=== PATIENT | male | born 1965 | race Caucasian/White ===

== ENCOUNTER 2017-11-11 08:01 | Outpatient (CLI) | payer BC ==
--- NOTE | 2017-11-11 11:09 | MRI ---
MR OF THE RIGHT HAND WITHOUT CONTRAST: Indication: Right ring finger metacarpal phalangeal ulnar collateral ligament injury with PIP joint p ain. Technique: Multiplanar, multisequence MRI images were obtained of the right hand without IV contrast. A surface marker was placed within the region of the pain at the PIP joint of the right long finger. Comparison: None. FINDINGS: The visualized carpal tunnels contents appear within normal limits. A small amount of fluid is seen within the flexor tendon sheath of the right long finger at the level of the metacarpal phalangeal head. The flexor tendons appear intact. There is hazy increased T2 and diminished T1 signal intensity seen involving the ulnar sagittal band of the right long finger at the level of the right long finger metacarpal phalangeal head on image 15 of series 5 and image 15 of series 6 suspicious for partial sagittal band tear. There is some very s ubtle radial subluxation of the extensor tendon at the level of the metacarpal phalangeal head. The c entral slip, however, does appear to remain intact and inserts at the base of the middle phalanx. The radial collateral and ulnar collateral ligaments of the MCP and PIP joints appear intact. The volar plates appear intact. There is some degenerative subchondral cyst like abnormality involving the radial aspect of the long finger metacarpal head. Incidental note is made of a small 8 mm ganglion adjacent to the ulnar aspect of the thumb MCP joint. No acute fracture is evident. IMPRESSION: 1. Findings suspicious for a partial thickness tear of the ulnar sagittal band of the long finger ext ensor tendon at the level of the metacarpal phalangeal head with very subtle subluxation of the exten sor tendon. The central band appears intact. The collateral ligaments of the right lung finger appear intact. 2. Degenerative subchondral cyst like abnormalities seen involving the radial aspect of the long fing er metacarpal phalangeal head. 3. Mild focal tenosynovitis of the flexor tendon at the level of the MCP head. The flexor tendons are intact. POS: [facility]
== END 2017-11-11 08:02 | disposition home or self-care (01) ==
LOC: MRI 08:01
PROVIDERS: ATTEND Orthopaedic Surgery Hand Surgery
DX: S63.654A Sprain of metacarpophalangeal joint of right ring finger, initial encounter (principal); M65.9 Synovitis and tenosynovitis, unspecified

== ENCOUNTER 2017-11-17 10:13 | Outpatient (CLI) | payer BC ==
[2017-11-17 11:47] LABS: #Eosinphils 0.1 thou/uL (0.0-0.7); #Lymphocytes 1.8 thou/uL (1.20-3.40); #Monocytes 0.5 thou/uL (0.11-0.59); #Neutrophils 2.6 thou/uL (1.40-6.50); %Basophils 0.6 % (0.0-1.0); %Eosinophils 2.7 % (0.0-10.0); %Lymphocytes 34.8 % (21.0-51.0); %Monocytes 10.6 % (0.0-10.0); Hematocrit 47.3 % (42.0-52.0); Mean Platelet Volume 8.6 fL (7.4-10.4); Red Blood Cell (RBC) Count 5.11 mill/uL (4.70-6.10); White Blood Cell (WBC) Count 5.1 thou/uL (4.8-10.8)
== END 2017-11-17 10:14 | disposition home or self-care (01) ==
LOC: LABBT 10:13
PROVIDERS: ATTEND Orthopaedic Surgery Hand Surgery
DX: Z01.812 Encounter for preprocedural laboratory examination (principal); S69.91XA Unspecified injury of right wrist, hand and finger(s), initial encounter; M65.9 Synovitis and tenosynovitis, unspecified
CPT/HCPCS: 85025; 93005; 93010

== ENCOUNTER 2017-11-28 05:55 | Day surgery (SDC) | payer BC ==
[2017-11-17 10:34] VITALS: BMI 27.8
[2017-11-28] MEDS ORDERED: Midazolam HCl 2 mg/2 ml Vial ONE (06:44)
[2017-11-28] MEDS ORDERED: Fentanyl 100 MCG/2 ML VIAL ONE (06:44)
[2017-11-28] MEDS ORDERED: Bacitracin Zinc Ointment 30 gm TUBE ONE (06:50)
[2017-11-28] MEDS ORDERED: Bupivacaine PF 0.5% 30 ML VIAL ONE (06:50)
[2017-11-28] MEDS ORDERED: Betamet Acet/Betamet Na Ph 30 MG/5 ML VIAL ONE (06:50)
[2017-11-28] MEDS ORDERED: Thrombin 5000 UNITS/5 ML VIAL ONE (06:50)
[2017-11-28] MEDS ORDERED: CEFAZOLIN 1 GM, Syringe 2.5 ML in Sterile Water 7.5 ML SLOW IVP SCH (07:15)
[2017-11-28] MEDS ORDERED: Ketorolac Tromethamine 30 MG/ML VIAL ONE ×2 (09:55→17:07)
[2017-11-28] MEDS ORDERED: Ondansetron HCl/PF 4 MG/2 ML Vial ONE (17:07)
[2017-11-28] MEDS ORDERED: diphenhydrAMINE 50 MG/ML VIAL ONE (17:07)
[2017-11-28] MEDS ORDERED: Dexamethasone 20 MG/5 ML VIAL ONE (17:07)
[2017-11-28] MEDS ORDERED: Metoclopramide HCl 10 MG/2 ML VIAL ONE (17:07)
[2017-11-28] MEDS ORDERED: Propofol 200 MG/20 ML VIAL ONE (17:07)
[2017-11-28] MEDS ORDERED: Lidocaine 1% PF 5 ML VIAL ONE (17:07)
[2017-11-28] MEDS ORDERED: ePHEDrine/0.9% NaCl/PF SYRINGE 50 mg/10 ml ONE (17:07)
[2017-11-28] MEDS ORDERED: PHENYLEPHRINE-NS 100 MCG/ML 10 ML SYRINGE ONE (17:07)
[2017-11-28] MEDS ORDERED: Glycopyrrolate 0.2 MG/ML 5 ML SYRINGE ONE (17:07)
--- NOTE | 2017-11-29 01:09 | OP ---
DATE OF PROCEDURE: 11/28/2017 SURGEON: Brandan Eisenberg MD ANESTHESIA: General LMA technique [place] Anesthesia augmented about 10 mL block at the total, divi ded equally amongst the 3 incisions. PREOPERATIVE DIAGNOSES: 1. Flexor tenosynovitis, metacarpophalangeal joint level, head of metacarpal. 2. Attenuation partial tear, ulnar side sagittal band with radial subluxation of the extensor mechan ism and audible popping felt at the PIP joint, but probably coming from the MP joint. 3. Possible MP joint collateral ligament injury with calcification of tissue. FINDINGS: 1. PIP joint, no collateral ligament injury especially ulnar, radial side with no thickening of the tendon. No central slip or collateral defect. 2. A 1 cm area long of attenuation with partial tear and marked thinning of the ulnar side retinacul um at the metacarpophalangeal joint says metacarpal head that leading to slight medialization of the extensor tendon. 3. Very thick tenosynovitis of flexor digitorum profundus and superficialis tendon level A1 nisha o f the metacarpal head. PROCEDURES PERFORMED: 1. A1 nisha release. 2. Flexor digitorum profundus radical tenosynovectomy. 3. Flexure jump superficialis radical tenosynovectomy. 4. Extensor tendon centralization with retinaculum repair, [id number] technique on ulnar side. 5. Extensor tenosynovectomy. COMPLICATIONS: None. TOURNIQUET TIME: 40 minutes. INJECTABLE: He has total of 5 mL of betamethasone used at 2 of the incisions. DESCRIPTION OF PROCEDURE: After successful general LMA technique, the limb was prepped and draped. The patient had timeout accomplished. All 3 sites were identified as has been discussed with the pat ient in response to his MRI and clinical findings in clinic. We then exsanguinated the limb, inflated the tourniquet to 250 mmHg pressure. A small 1 cm incision was made over the flexor digitorum profundus where he has approximately A1 nisha appeared very thick tenosynovium on both side of the A1 nisha, and there was audible popping with flexion, so we releas ed A1 nisha and performed a radical flexor tenosynovectomy of the two tendons here. Specimen, which was sent to the lab. We closed this wound after placing 3 mL of dexamethasone in this area with simple 4-0 nylon. We then made a curvilinear incision on the ulnar aspect metacarpophalangeal joints at metacarpal head dorsally, carried through skin, subcutaneous tissue, and as soon as we dissected through some very t hick tenosynovium which was extensive, and we could see the difference between the radial and ulnar r etinaculum began at the metacarpal head where there was attenuation area of actual sagittal band fibe rs that did not have any tension on them, with very thin and at the proximal aspect were torn over 2- 3 mm area, but for another centimeter proximally greatly attenuated. This was not seen on the radial side and with the finger in neutral as we flexed past the 60 degrees, we could see some mild radial subluxation, mild subluxation was seen. For this reason, we resected this area of the attenuated ten don, and [id number] 2 mm on either side approximation of the tendon to make for the 2 mm of rese ction we had to do, and this centralized the tendon. A 4-0 Prolene was used for this [id number] reconstruction. Once this was done, there was no further audible popping. We made an incision of 1 5 mm over the PIP joint, inspected the collateral ligament, looked for calcification, we could not se e any. There was no fiber malposition or attenuation. We released the tourniquet, obtained hemostas is. We closed all the incisions with dorsum head with interrupted 4-0 nylon, placed him in a bulky d ressing with 10 degrees hyperextension at the long finger MP joint and the patient left operating wit h pink digits. No evidence of anesthetic or operative complication.
== END 2017-11-28 10:53 | disposition home or self-care (01) ==
LOC: SDC 05:55
PROVIDERS: ATTEND Orthopaedic Surgery Hand Surgery
PROC: 01Q40ZZ Repair Ulnar Nerve, Open Approach (ICD-10-PCS; principal; 2017-11-28)
PROC: 0LT70ZZ Resection of Right Hand Tendon, Open Approach (ICD-10-PCS; principal; 2017-11-28)
DX: M65.9 Synovitis and tenosynovitis, unspecified (principal); S63.23 Subluxation of proximal interphalangeal joint of finger; S66.319A Strain of extensor muscle, fascia and tendon of unspecified finger at wrist and hand level, initial encounter; F03.90 Unspecified dementia, unspecified severity, without behavioral disturbance, psychotic disturbance, mood disturbance, and anxiety; M26.603 Bilateral temporomandibular joint disorder, unspecified; Z79.891 Long term (current) use of opiate analgesic; Z79.899 Other long term (current) drug therapy; Z98.1 Arthrodesis status; Z90.49 Acquired absence of other specified parts of digestive tract; Z98.890 Other specified postprocedural states
CPT/HCPCS: 88305; 89060; 96372; A4216; J0131; J0690; J0702; J1100; J1200; J1885; J2001; J2250; J2405; J2704; J2765; J3010; S0020

== ENCOUNTER 2021-02-28 12:21 | Outpatient (CLI) | payer BC ==
[2021-02-28] MEDS ORDERED: Iopamidol 370 76% 100 ML VIAL ONE (14:53)
== END 2021-02-28 12:22 | disposition home or self-care (01) ==
LOC: BICCT 12:21
PROVIDERS: ATTEND Internal Medicine Cardiovascular Disease
DX: R07.9 Chest pain, unspecified (principal); N28.1 Cyst of kidney, acquired; K76.9 Liver disease, unspecified; R91.8 Other nonspecific abnormal finding of lung field
CPT/HCPCS: 71260; Q9967

== ENCOUNTER 2021-04-18 08:59 | Outpatient (CLI) | payer BC | END 2021-04-18 09:00 | disposition home or self-care (01) | LOC: BICRAD 08:59 | PROVIDERS: ATTEND Internal Medicine Critical Care Medicine | DX: R06.00 Dyspnea, unspecified (principal) | CPT/HCPCS: 71046 ==

== ENCOUNTER 2021-09-27 09:51 | Outpatient (CLI) | payer BC | END 2021-09-27 09:52 | disposition home or self-care (01) | LOC: BICRAD 09:51 | PROVIDERS: ATTEND Neurological Surgery | DX: M47.22 Other spondylosis with radiculopathy, cervical region (principal); Z98.1 Arthrodesis status | CPT/HCPCS: 72050 ==

== ENCOUNTER 2022-04-11 07:28 | Outpatient (CLI) | payer BC | END 2022-04-11 07:29 | disposition home or self-care (01) | LOC: CT 07:28 | PROVIDERS: ATTEND Internal Medicine Critical Care Medicine | DX: R91.8 Other nonspecific abnormal finding of lung field (principal) | CPT/HCPCS: 71250 ==

== ENCOUNTER 2022-07-22 09:22 | Emergency (ER) | payer BC | END 2022-07-22 12:11 | disposition home or self-care (01) | LOC: ERS 09:22 | DX: S70.02XA Contusion of left hip, initial encounter (principal); W11.XXXA Fall on and from ladder, initial encounter; Z79.899 Other long term (current) drug therapy | CPT/HCPCS: 72192 ==

== ENCOUNTER 2023-08-20 15:47 | Outpatient (CLI) | payer BC | END 2023-08-20 15:48 | disposition home or self-care (01) | LOC: SCSRAD 15:47 | PROVIDERS: ATTEND Family Medicine | DX: R05.9 Cough, unspecified (principal) | CPT/HCPCS: 71046 ==